=== PATIENT | male | born 1955 | race African-American/Black ===

== ENCOUNTER → 2019-02-19 | Day surgery (SDC) | payer OTHER ==
[~2019-02-19] VITALS: Ht 175.3 cm; Wt 83.9 kg
[~2019-02-19] MED LIST: APIX2.5T PO; DILT120C12 PO; FLUMAZENIL 0.1 MG/ML INJ 10ML MDV IV ONE; HCTZ25T PO; NALOXONE HCL 0.4 MG/ML VIAL ONE; SODIUM CHLORIDE LOCK 10 ML ONE; diphenhdrAMINE HCL 50 MG/1 ML VL ONE
[2019-02-19 07:57] LABS: Basophils # (auto) 0 uL; Eosinophils # (auto) 0.3 uL; Eosinophils % (auto) 3.6 % (0.0-7.0); Hemoglobin 14.9 g/dL (13.5-17.5); Lymphocytes # (auto) 1.2 uL; Mean Corpuscular Hemoglobin 23.9 pg (28.0-32.0); Mean Corpuscular Hgb Conc. 32.1 g/dL (32.0-36.0); Neutrophils # (auto) 5.2 uL; Nucleated Red Blood Cells % 0.1 %; Red Cell Distribution Width 13.7 % (11.8-14.3); White Blood Cell 7.6 10^3/uL (4.4-10.8)
[2019-02-19 07:59] LABS: Basophils % (auto) 0.6 % (0.0-2.0); Hematocrit 46.3 % (41.0-53.0); Lymphocytes % (auto) 16.1 % (10.0-50.0); Mean Corpuscular Volume 74.4 fL (80.0-100.0); Monocytes # (auto) 0.8 uL; Monocytes % (auto) 11.1 % (0.0-12.0); Neutrophils % (auto) 68.6 % (37.0-80.0); Platelet Count (auto) 219 10^3/uL (140-450); Red Blood Cells 6.22 10^6/uL (4.5-5.90)
[2019-02-19 08:01] LABS: INR 1.11 (0.9-1.15); Partial Thromboplastin Time 27.2 sec (23.64-32.05)
[2019-02-19] MEDS: fentaNYL CITRATE 100 MCG/2 ML VL ONE ×2 (09:05→09:06)
[2019-02-19] MEDS: MIDAZOLAM HCL 5 MG/ML-1ML VIAL ONE ×2 (09:05→09:06)
[2019-02-19 09:49] VITALS: BP 136/92
== END | disposition home or self-care (01) ==
LOC: SUR 06:20
PROVIDERS: ATTEND Internal Medicine Gastroenterology
DX: Z12.11 Encounter for screening for malignant neoplasm of colon (principal); K63.5 Polyp of colon; K64.8 Other hemorrhoids; I10 Essential (primary) hypertension; Z88.5 Allergy status to narcotic agent
CPT/HCPCS: 36415; 45380; 85025; 85610; 85730; J1200; J2250; J3010; J7030; 99152

== ENCOUNTER → 2019-03-04 | Day surgery (SDC) | payer OTHER ==
[~2019-03-04] VITALS: Ht 170.2 cm; Wt 85.7 kg
[~2019-03-04] MED LIST changes: +CIPROFLOXACIN 400MG/200ML 200 ML IV ONE; +DexAMETHasone SOD PHOS 10MG/1ML VIAL INJ ONE; -FLUMAZENIL 0.1 MG/ML INJ 10ML MDV IV ONE; +HYDROmorphone HCL 2 MG/ML VL IV PRN; +LABETALOL HCL 5 MG/ML 4ML SYRINGE IV PRN; +MEPERIDINE HCL (25 MG/ML) 1ML VIAL ONE; +MIDAZOLAM HCL 1MG/1ML-2 ML VIAL IV PRN; +MIDAZOLAM HCL 1MG/1ML-2 ML VIAL ONE; +MORPHINE SULFATE 4 MG/ML SYR/VIAL IV PRN; -NALOXONE HCL 0.4 MG/ML VIAL ONE; +ONDANSETRON HCL 4 MG/2 ML VIAL IV PRN; +PROPOFOL 10 MG/ML 20 ML IV ONE; -SODIUM CHLORIDE LOCK 10 ML ONE; -diphenhdrAMINE HCL 50 MG/1 ML VL ONE; +ePHEDrine SULFATE 50 MG/ML AMP IV PRN; +fentaNYL CITRATE 100 MCG/2 ML VL ONE
[2019-03-04 09:35] VITALS: BP 121/79
== END | disposition home or self-care (01) ==
LOC: SUR 07:45 → EEVIPCON 07:45
PROVIDERS: ATTEND Urology
DX: N40.1 Benign prostatic hyperplasia with lower urinary tract symptoms (principal); I10 Essential (primary) hypertension; I25.10 Atherosclerotic heart disease of native coronary artery without angina pectoris; Z88.5 Allergy status to narcotic agent; Z87.891 Personal history of nicotine dependence; Z79.899 Other long term (current) drug therapy
CPT/HCPCS: 55700; 76942; 88305; 88342; C1769; J0744; J1100; J2175; J2250; J2704; J3010; J7030

== ENCOUNTER 2019-07-16 15:22 | Inpatient (IN) | payer OTHER ==
[~2019-07-16] VITALS: Ht 170.2 cm; Wt 82.6 kg
[~2019-07-16 15:22] MED LIST changes: -CIPROFLOXACIN 400MG/200ML 200 ML IV ONE; -DexAMETHasone SOD PHOS 10MG/1ML VIAL INJ ONE; -HYDROmorphone HCL 2 MG/ML VL IV PRN; -LABETALOL HCL 5 MG/ML 4ML SYRINGE IV PRN; -MEPERIDINE HCL (25 MG/ML) 1ML VIAL ONE; -MIDAZOLAM HCL 1MG/1ML-2 ML VIAL IV PRN; -MIDAZOLAM HCL 1MG/1ML-2 ML VIAL ONE; -MORPHINE SULFATE 4 MG/ML SYR/VIAL IV PRN; -ONDANSETRON HCL 4 MG/2 ML VIAL IV PRN; -PROPOFOL 10 MG/ML 20 ML IV ONE; -ePHEDrine SULFATE 50 MG/ML AMP IV PRN; -fentaNYL CITRATE 100 MCG/2 ML VL ONE
[2019-07-16 16:05] LABS: Basophils # (auto) 0.1 10 ^3/uL (0-0.2); Lymphocytes # (auto) 1.5 10 ^3/uL (0.4-5.4); Nucleated Red Blood Cells % 0.1 %
[2019-07-16 16:07] LABS: Basophils % (auto) 0.5 % (0.0-2.0); Eosinophils # (auto) 0.4 10 ^3/uL (0-0.8); Eosinophils % (auto) 4.2 % (0.0-7.0); Hematocrit 44.6 % (41.0-53.0); Hemoglobin 14.1 g/dL (13.5-17.5); Lymphocytes % (auto) 14.3 % (10.0-50.0); Mean Corpuscular Hemoglobin 22.7 pg (28.0-32.0); Mean Corpuscular Hgb Conc. 31.6 g/dL (32.0-36.0); Mean Corpuscular Volume 71.7 fL (80.0-100.0); Neutrophils # (auto) 7.4 10 ^3/uL (1.6-8.6); Platelet Count (auto) 250 10^3/uL (140-450); Red Blood Cells 6.22 10^6/uL (4.5-5.90); Red Cell Distribution Width 14.4 % (11.8-14.3); White Blood Cell 10.4 10^3/uL (4.4-10.8)
[2019-07-16 16:12] LABS: Albumin 3.6 g/dL (3.4-5.0); BUN/Creatinine Ratio 22.4; Calcium 8.9 mg/dL (8.5-10.1); Potassium 3.8 mmol/L (3.5-5.1)
[2019-07-16 16:15] LABS: Bilirubin, Total 0.4 mg/dL (0.2-1.0); Total Protein 7.9 g/dL (6.4-8.2)
[2019-07-16 16:31] LABS: INR 1.08 (0.9-1.15); Partial Thromboplastin Time 28.2 sec (23.64-32.05)
[2019-07-16 17:17] LABS: Urine Bacteria FEW /hpf (None Seen); Urine Blood Negative /uL (Negative); Urine Mucus FEW (None Seen); Urine Specific Gravity 1.026 (1.001-1.035); Urine WBC 1 /hpf (0 - 3)
[2019-07-16 17:21] LABS: Alcohol, Urine < 3.0 mg/dL (0-5); Amphetamine Screen, Urine NEGATIVE (NEGATIVE); Barbiturate Scree,Urine NEGATIVE (NEGATIVE); Benzodiazephine Screen, Urine NEGATIVE (NEGATIVE); Cannabinoid Screen, Urine NEGATIVE (NEGATIVE); Cocaine Screen, Urine NEGATIVE (NEGATIVE); Opiate Scree,Urine NEGATIVE (NEGATIVE); Phencyclidine Screen, Urine NEGATIVE (NEGATIVE)
[2019-07-16] MEDS ORDERED: SODIUM CHLORIDE 0.9% 1,000 ML IV ONE (21:15)
[2019-07-16] MEDS ORDERED: CIPROFLOXACIN 400MG/200ML 200 ML IV ONE (21:15)
--- NOTE | 2019-07-16 21:55 | NUR ---
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 HE WAS ABLE TO WALK TO BED WITHOUT ASSISTANCE. HE HAS CHIEF COMPLAINT IF BLOOD IN URINE FOR PAST 5 DAYS. HE WAS ABLE TO USE RESTROOM BUT VISUAL ASSESSMENT OF URINE APPEARED TO BE NORMAL CLEAR YELLOW URINE. DOES NOT COMPLAIN OF ANY PAIN AT THIS TIME. HE IS AO X4 AND CURRENTLY ON ROOM AIR. ALL QUESTIONS HAVE BEEN ANSWERED. BED IS LOCKED IN LOWEST POSITION WITH SIDE RAILS UP X2. HAS RIGHT WRIST CHAINED TO BED AND FEET SHACKLED TOGETHER. GUARDS ARE BEDSIDE. WILL CONTINUE TO MONITOR
[2019-07-16] MEDS: APIXABAN 2.5 MG TAB PO SCH (22:10)
[2019-07-16 22:15] VITALS: BP 164/88
[2019-07-17] MEDS ORDERED: HYDROcodone-ACET 10/325MG TAB PO PRN (02:00)
[2019-07-17 05:00] VITALS: BP 161/93
--- NOTE | 2019-07-17 07:30 | NUR ---
Opening Shift Note Assumed care of patient, awake, alert, and oriented. No S/S of distress/SOB or pain. Bed in lowest/locked position, bed rails up x2, call light within reach. Guards at bedside. Instructed on POC and to call for assist PRN. Will continue to monitor for changes Q1hr and PRN.
[2019-07-17] MEDS: APIXABAN 2.5 MG TAB PO SCH ×2 (08:45→21:33)
[2019-07-17 08:47] VITALS: BP 166/100
[2019-07-17] MEDS ORDERED: dilTIAZem 120MG ER CAP PO SCH (10:00)
[2019-07-17] MEDS ORDERED: HCTZ 25 MG TAB PO SCH (10:00)
--- NOTE | 2019-07-17 11:50 | NUR ---
MD ROUNDS DR GUTHRIE AT BEDSIDE DISCUSSING POC WITH PATIENT. NO NEW ORDERS RECEIVED AT THIS TIME. WILL CONTINUE TO MONITOR
[2019-07-17] MEDS ORDERED: cloNIDine HCL 0.1 MG TAB PO PRN (12:15)
[2019-07-17 13:00] VITALS: BP 157/95
[2019-07-17] MEDS ORDERED: IOHEXOL 350 MG/ML 100ML IJ ONE (15:48)
[2019-07-17 17:00] VITALS: BP 156/96
[2019-07-17 17:29] LABS: Urine Bacteria NONE SEEN /hpf (None Seen); Urine Blood Negative /uL (Negative); Urine Specific Gravity 1.019 (1.001-1.035); Urine Sperm PRESENT /hpf (None Seen); Urine WBC <1 /hpf (0 - 3)
[2019-07-17] MEDS: SULFAMETHOX W/TRIMETH(800/160MG) DS TAB PO SCH (21:33)
[2019-07-17 22:00] VITALS: BP 158/93
[2019-07-18 05:00] VITALS: BP 184/97
[2019-07-18 09:00] VITALS: BP 149/88
[2019-07-18] MEDS: SULFAMETHOX W/TRIMETH(800/160MG) DS TAB PO SCH ×2 (10:13→21:27)
[2019-07-18] MEDS: APIXABAN 2.5 MG TAB PO SCH ×2 (10:13→21:27)
[2019-07-18] MEDS: dilTIAZem 120MG ER CAP PO SCH (10:42)
[2019-07-18] MEDS: HCTZ 25 MG TAB PO SCH (10:43)
[2019-07-18 13:00] VITALS: BP 141/88
[2019-07-18 17:02] VITALS: BP 138/94
[2019-07-18] MEDS: TAMSULOSIN HYDROCHLORIDE 0.4 MG CAP PO SCH (17:36)
[2019-07-18 22:00] VITALS: BP 144/91
[2019-07-19 05:00] VITALS: BP 134/83
[2019-07-19 09:00] VITALS: BP 117/89
[2019-07-19] MEDS: SULFAMETHOX W/TRIMETH(800/160MG) DS TAB PO SCH ×2 (10:26→21:52)
[2019-07-19] MEDS: HCTZ 25 MG TAB PO SCH (10:27)
[2019-07-19] MEDS: APIXABAN 2.5 MG TAB PO SCH ×2 (10:27→21:52)
[2019-07-19] MEDS: dilTIAZem 120MG ER CAP PO SCH (10:28)
[2019-07-19 13:00] VITALS: BP 152/95
[2019-07-19 16:59] VITALS: BP 128/85
[2019-07-19] MEDS: TAMSULOSIN HYDROCHLORIDE 0.4 MG CAP PO SCH (18:03)
--- NOTE | 2019-07-19 19:35 | NUR ---
Opening shift note Assumed care of patient. Patient sitting up A&Ox4, respirations even and non-labored with no s/s of distress. Discussed POC with patient who verbalized understanding. IV flushed, patent and intact. Urinals bedside, bed lowered/locked with 2 side rails up. Guards at bedside, call light within reach. Will continue to monitor.
[2019-07-19 22:00] VITALS: BP 146/82
--- NOTE | 2019-07-20 01:00 | NUR ---
ROUNDING Patient sleeping at this time, respirations even and unlabored, [facility] guards at bedside, will continue to monitor
[2019-07-20 05:00] VITALS: BP 144/90
--- NOTE | 2019-07-20 06:57 | NUR ---
End of Shift Note Endorsed care to Justina GALINDO. At this time patient has no s/s of distress or SOB. Patient is alert and oriented x4. No complaints at this time.
--- NOTE | 2019-07-20 07:17 | NUR ---
AWAKE ALERT ORIENTED TIMES 4 DENIES ANY PAIN AT THIS TIME. NO SIGNS OF DISTRESS.
[2019-07-20] MEDS ORDERED: TAM04C PO (08:41)
[2019-07-20 09:00] VITALS: BP 141/81
[2019-07-20] MEDS: SULFAMETHOX W/TRIMETH(800/160MG) DS TAB PO SCH (09:27)
[2019-07-20] MEDS: APIXABAN 2.5 MG TAB PO SCH (09:28)
[2019-07-20] MEDS: dilTIAZem 120MG ER CAP PO SCH (09:28)
[2019-07-20] MEDS: HCTZ 25 MG TAB PO SCH (09:28)
[2019-07-20 09:37] VITALS: BP 141/81
== END 2019-07-20 12:30 | DRG 726 ==
LOC: ER 15:22 → EEVIPCON 15:22 → OVERFLOW 15:23 → WEST WING 21:57
PROVIDERS: ADMIT Internal Medicine; ATTEND Internal Medicine
DX: N40.1 Benign prostatic hyperplasia with lower urinary tract symptoms (principal); N13.8 Other obstructive and reflux uropathy; C61 Malignant neoplasm of prostate; I10 Essential (primary) hypertension; E78.5 Hyperlipidemia, unspecified; N19 Unspecified kidney failure; J30.9 Allergic rhinitis, unspecified; Z88.5 Allergy status to narcotic agent; Z79.899 Other long term (current) drug therapy; Z86.711 Personal history of pulmonary embolism; Z85.46 Personal history of malignant neoplasm of prostate; Z80.8 Family history of malignant neoplasm of other organs or systems
CPT/HCPCS: 36415; 71275; 74176; 74178; 78306; 80053; 80307; 81001; 84154; 85025; 85610; 85730; 87081; 87086; G0378